=== PATIENT | male | born 1985 | race African-American/Black ===

== ENCOUNTER 2017-06-04 09:49 | Emergency (ER) | payer OTHER ==
[~2017-06-04] VITALS: Ht 185.4 cm; Wt 91.0 kg
[2017-06-04 09:58] VITALS: BP 134/86
== END 2017-06-04 12:18 | disposition home or self-care (01) ==
LOC: ER 10:39
DX: J39.2 Other diseases of pharynx (principal)
CPT/HCPCS: 99281